=== PATIENT | female | born 1990 | race Caucasian/White ===

== ENCOUNTER 2020-02-09 20:40 | Inpatient (IN) | payer OTHER ==
--- OUTSIDE RECORDS SUMMARY | 2020-02-09 21:07 | XMS ---
:1990 Author Organization [facility] Support Name Relationship Address Phone JENNIFER WALKER STUDVIKA Unavailable [address] [place] [address] NICOLE GRAHAM [address] [place] [address] Re-disclosure Warning The records that you are about to access may contain information from federally- assisted alcohol or drug abuse programs. If such information is present, then the following federally mandated warning applies: This information has been disclosed to you from records protected by federal confidentiality rules (42 CFR part 2). The federal rules prohibit you from making any further disclosure of this information unless further disclosure is expressly permitted by the written consent of the person to whom it pertains or as otherwise permitted by 42 CFR part 2. A general authorization for the release of medical or other information is NOT sufficient for this purpose. The Federal rules restrict any use of the information to criminally investigate or prosecute any alcohol or drug abuse patient.The records that you are about to access may contain highly sensitive health information, the redisclosure of which is protected by Article 27-F of the [facility] Public Health law. If you continue you may haveaccess to information: Regarding HIV / AIDS; Provided by facilities licensed or operated by the [facility] Office of Mental Health; or Provided by the [facility] Office for People With Developmental Disabilities. If such information is present, then the following [facility] mandated warning applies: This information has been disclosed to you from confidential records which are protected by state law. State law prohibits you from making any further disclosure of this information without the specific written consent of the person to whom it pertains, or as otherwise permitted by law. Any unauthorized further disclosure in violation of state law may result in a fine or shelter sentence or both. A general authorization for the release of medical or other information is NOT sufficient authorization for further disclosure. Insurance Providers Payer name Policy type Policy ID Covered Covered democrat's Policy P ronny / Coverage democrat ID relationship to Aaron Inf ormation type aaron P MEDICAID [id number] O [facility] [id number] PLANS Results ID Date Data Source [id number] 09/09/2019 12:00:00 AM EDT [facility] Name Value Range Interpretation Code Description Data Columba rce(s) Supporting Document(s ) 2019-nCoV [facility] RNA XXX ROBB+probe- Imp This lab was ordered by BERNARDINO and reported by [employer] Procedure
--- OUTSIDE RECORDS SUMMARY | 2020-02-09 21:22 | XMS ---
:1990 Author Organization [facility] Support Name Relationship Address Phone JENNIFER BOYER Unavailable [address] [place] [address] GUERLINE RIVERA [address] [place] [address] Re-disclosure Warning The records that you are [...] is protected by Article 27-F of the [facility] Public Health law. If you continue you may haveaccess to information: Regarding HIV / AIDS; Provided by facilities licensed or operated by the [facility] Office of Mental Health; or Provided by the [facility] Office for People With Developmental Disabilities. If such information is present, then the following [facility] mandated warning applies: This information has been [...] law may result in a fine or detention sentence or both. A general authorization for the release of medical or other information is NOT sufficient authorization for further disclosure. Insurance Providers Payer name Policy type Policy ID Covered Covered republican's Policy P ronny / Coverage republican ID relationship to Aaron Inf ormation type aaron P MEDICAID [id number] O [facility] [id number] PLANS Results ID Date Data Source [id number] 09/09/2019 12:00:00 AM EDT [facility] Name Value Range Interpretation Code Description Data Columba rce(s) Supporting Document(s ) 2019-nCoV [facility] RNA XXX ROBB+probe- Imp This lab was ordered by BERNARDINO and reported by [employer] Procedure
[2020-02-09] MEDS ORDERED: BUTORPHANOL TARTRATE 2 MG/ML VIAL IVPB PRN (22:09)
[2020-02-09] MEDS ORDERED: ELECTROLYTE-148 SOLN 1,000 ML IV SCH (22:15)
--- NOTE | 2020-02-09 22:18 | HP ---
Past Medical History - Primary Care Physician PCP:: Keisha Jones - Admission Chief Complaint: SROM at 37 week History of Present Illness: 29 yo G P EDC EGA 37 week admitted due to srom at 37 week History Source: Patient Limitations to Obtaining History: No Limitations - Past Surgical History Hx Myomectomy: No Hx Transabdominal Cerclage: No - Smoking History Smoking history: Never smoked Aproximately how many cigarettes per day: 0 - Alcohol/Substance Use Hx Alcohol Use: No Home Medications - Allergies Allergies/Adverse Reactions: Allergies Allergy/AdvReac Type Severity Reaction Status Date / Time shellfish derived Allergy Intermediate Itching Verified 02/09/20 21:54 - Home Medications Home Medications: Ambulatory Orders Albuterol Sulfate Inhaler - [Ventolin HFA Inhaler -] 1 inh PO Q4H PRN 11/04/14 Azithromycin [Zithromax 250mg Tablets -] 250 mg PO UTDICT #6 tab 12/21/15 Fexofenadine HCl [Casandra Allergy] 180 mg PO DAILY #7 tablet 12/21/15 Review of Systems - Review of Systems Constitutional: reports: No Symptoms Eyes: reports: No Symptoms HENT: reports: No Symptoms Neck: reports: No Symptoms Cardiovascular: reports: No Symptoms Respiratory: reports: No Symptoms Gastrointestinal: reports: No Symptoms Genitourinary: reports: No Symptoms Breasts: reports: No Symptoms Reported Musculoskeletal: reports: No Symptoms Integumentary: reports: No Symptoms Neurological: reports: No Symptoms Endocrine: reports: No Symptoms Hematology/Lymphatic: reports: No Symptoms Psychiatric: reports: No Symptoms Physical Exam - Maternity Constitutional: Yes: Well Nourished, No Distress Cardiovascular: Yes: WNL - Abdominal Exam/OB Fundal Height: 37 Number of Fetuses: Single Presentation: Vertex Contractions: Yes Regularity: Irregular Monitor Mode: External Heart Rate (range): 141 Heart Rate Location: [facility] Category: I Decelerations: None - Vaginal Exam/OB Dilatation (cm): 1 Amniotic Membrane Status: Ruptured Nitrazine Test: Positive Presentation: Vertex/Position - Physical Exam Musculoskeletal: Yes: WNL Extremities: Yes: WNL Psychiatric: Yes: WNL, Alert, Oriented Problem List - Problems (1) Spontaneous rupture of amniotic membranes Problems reviewed: Yes Code(s): MLK2486 - (2) 37 weeks gestation of Problems reviewed: Yes Code(s): Z3A.37 - 37 WEEKS GESTATION OF Assessment/Plan IUP at 37 week SROM Cat 1 GBS neg Plan Admit to LD
[2020-02-09 22:25] VITALS: BMI 26.6
[2020-02-09 23:54] LABS: BASO % 0.3 % (0-2.0); EOS % 2.5 % (0-4.5); HEMATOCRIT 37.2 % (32.4-45.2); HEMOGLOBIN 12.3 GM/dL (10.7-15.3); LYMPH % 16.8 % (8-40); MCH 28.8 pg (25.7-33.7); MCHC 33.1 g/dl (32.0-36.0); MEAN PLT VOLUME 7.7 fl (7.5-11.1); MONO % 8.3 % (3.8-10.2); NEUT % 72.1 % (42.8-82.8); PLATELET COUNT 328 K/MM3 (134-434); RBC 4.28 M/mm3 (3.60-5.2); RDW 13.8 % (11.6-15.6); WHITE BLOOD COUNT 10.7 K/mm3 (4.0-10.0)
[2020-02-10] LABS: INR 0.93 (0.83-1.09); PROTHROMBIN TIME (PATIENT) 11.3 SEC (9.7-13.0)
[2020-02-10 00:02] LABS: ACTIVATED PTT 27.7 SECONDS (25.2-36.5)
[2020-02-10 00:19] LABS: POTASSIUM 3.9 mmol/L (3.5-5.1)
[2020-02-10 00:20] LABS: CALCIUM 9.1 mg/dL (8.5-10.1)
[2020-02-10 00:21] LABS: BLOOD UREA NITROGEN 8.1 mg/dL (7-18)
[2020-02-10 00:24] LABS: CREATININE 0.6 mg/dL (0.55-1.3)
[2020-02-10] MEDS ORDERED: FENTANYL/BUPIVACAINE/NS/PF - PCEA - 50 ML DISP.SYRIN EP ONE ×3 (08:15→16:23)
[2020-02-10] MEDS ORDERED: PCA PUMP NR ONE ×3 (08:15→19:40)
--- NOTE | 2020-02-10 08:19 | PN ---
Ante-Partal Exam - Subjective Vital Signs: Vital Signs Temperature 98.2 F 02/10/20 07:00 Pulse Rate 71 02/10/20 07:00 Respiratory Rate 18 02/10/20 07:00 Blood Pressure 112/54 L 02/10/20 07:00 O2 Sat by Pulse Oximetry (%) Bleeding: No Headache: No Visual changes: No Right upper quadrant pain: No - Contractions Contractions: Yes - Exam during Labor Variability: Moderate Heart Rate Location: [facility] Category: I Exam: Vaginal Dilatation (cm): 2 Effacement (%): 80 Amniotic Membrane Status: Ruptured Amniotic Fluid: Clear Presentation: Vertex - Intrapartum Hemorrhage Risk Risk Score: 0 Risk Level: Low Risk - Assessment/Plan Assessment/Plan: SROM >12 hours 37 week Cat 1 Plan will start IV antibiotics pitocin aug
[2020-02-10] MEDS ORDERED: OXYTOCIN 30 UNITS in 0.9% NS 30 UNIT/500 ML INFUS.BAG IVPB SCH (08:30)
[2020-02-10] MEDS ORDERED: AMPICILLIN - 2 GM in SODIUM CHLORIDE 100 ML IVPB ONE (08:30)
[2020-02-10 08:35] LABS: POC NITRAZINE POS
[2020-02-10] MEDS ORDERED: AMPICILLIN SODIUM 2 GM VIAL ONE (08:50)
[2020-02-10] MEDS ORDERED: OXYTOCIN 30 UNITS in 0.9% NS 30 UNIT/500 ML INFUS.BAG IVPB ONE (08:50)
[2020-02-10] MEDS ORDERED: AMPICILLIN SODIUM 1 GM VIAL ONE ×2 (12:00→16:22)
[2020-02-10] MEDS: AMPICILLIN - 1 GM in SODIUM CHLORIDE 100 ML IVPB SCH ×3 (12:30→22:20)
--- NOTE | 2020-02-10 14:05 | PN ---
Ante-Partal Exam - Subjective Vital Signs: Vital Signs Temperature 98.0 F 02/10/20 13:00 Pulse Rate 69 02/10/20 09:45 Respiratory Rate 16 02/10/20 09:45 Blood Pressure 104/64 02/10/20 09:45 O2 Sat by Pulse Oximetry (%) 98 02/10/20 09:45 Bleeding: No Headache: No Visual changes: No Right upper quadrant pain: No - Contractions Monitor Mode: External - Exam during Labor Variability: Moderate Category: I Monitor Decelerations: None Exam: Vaginal Dilatation (cm): 3 Effacement (%): 100 Amniotic Membrane Status: Intact Presentation: Vertex Station: 0 - Intrapartum Hemorrhage Risk High Risk Factors: None Risk Score: 0 Risk Level: Low Risk - Assessment/Plan Assessment/Plan: Active labor Cat 1 Plan Continue present management
[2020-02-10] MEDS ORDERED: NALOXONE HCL 0.4 MG/ML VIAL IVPUSH PRN (16:33)
[2020-02-10] MEDS ORDERED: FENTANYL/BUPIVACAINE/NS/PF - PCEA - 50 ML DISP.SYRIN EP SCH (16:45)
[2020-02-10] MEDS ORDERED: LIDOCAINE HCL 1% PRESERVATIVE FREE - 30ML VIAL ONE (18:57)
[2020-02-10] MEDS ORDERED: OXYTOCIN 20 UNITS in 0.9% NS 20 UNIT/1,000 ML INFUS.BAG IV ONE (18:57)
--- NOTE | 2020-02-10 19:01 | PN ---
Ante-Partal Exam - Subjective Vital Signs: Vital Signs Temperature 98.4 F 02/10/20 18:00 Pulse Rate 79 02/10/20 16:00 Respiratory Rate 16 02/10/20 16:00 Blood Pressure 107/71 02/10/20 16:00 O2 Sat by Pulse Oximetry (%) 99 02/10/20 16:00 Bleeding: No Headache: No Visual changes: No Right upper quadrant pain: No - Contractions Contractions: Yes Monitor Mode: External - Exam during Labor Variability: Moderate Category: I Monitor Decelerations: None Exam: Vaginal Dilatation (cm): FD Presentation: Vertex Station: +1 - Intrapartum Hemorrhage Risk High Risk Factors: None Risk Score: 0 Risk Level: Low Risk - Assessment/Plan Assessment/Plan: Active labor Cat 1 37 week Plan anticipate vaginal delivery
[2020-02-10] MEDS ORDERED: BENZOCAINE 20% 57 GM BOTTLE TP PRN (20:03)
[2020-02-10] MEDS ORDERED: WITCH HAZEL 50% (TUCKS) 40 PAD/JAR PAD TP PRN (20:03)
[2020-02-10] MEDS ORDERED: METHYLERGONOVINE MALEATE 0.2 MG/1 ML AMP IM PRN (20:03)
[2020-02-10] MEDS ORDERED: BENZOCAINE 28 GM HEMORRHOIDAL OINTMENT RC PRN (20:03)
[2020-02-10] MEDS ORDERED: BISACODYL 10 MG SUPP.RECT PR PRN (20:03)
--- NOTE | 2020-02-10 20:03 | PN ---
Delivery - Delivery Vaginal Delivery: No Problems, Spontaneous Type of Anesthesia: Epidural Episiotomy/Laceration: None EBL (cc): 300 Delivery, Single - Stages of Labor Placenta: Yes: Spontaneous - Condition of Gender: Female Position: OA - [place] Feeding Plan Initial Plan: Elected not to breastfeed exclusively throughout hospitalization
[2020-02-10] MEDS ORDERED: OXYTOCIN 20 UNITS in 0.9% NS 20 UNIT/1,000 ML INFUS.BAG IV SCH (20:15)
[2020-02-10] MEDS ORDERED: ACETAMINOPHEN 325 MG TABLET (FP) ONE (20:45)
[2020-02-10] MEDS: ACETAMINOPHEN 325 MG TABLET (FP) PO PRN (20:45)
[2020-02-10] MEDS: IBUPROFEN 600 MG TABLET (FP) PO PRN (20:45)
[2020-02-10] MEDS ORDERED: IBUPROFEN 600 MG TABLET (FP) PO ONE (20:45)
[2020-02-11] MEDS: IBUPROFEN 600 MG TABLET (FP) PO PRN ×2 (07:05→17:34)
[2020-02-11] MEDS: ACETAMINOPHEN 325 MG TABLET (FP) PO PRN ×2 (07:06→17:34)
[2020-02-11 09:34] LABS: BASO % 0.3 % (0-2.0); EOS % 0.9 % (0-4.5); HEMATOCRIT 33.4 % (32.4-45.2); HEMOGLOBIN 10.7 GM/dL (10.7-15.3); LYMPH % 9.3 % (8-40); MCH 28.6 pg (25.7-33.7); MCHC 32.2 g/dl (32.0-36.0); MEAN CELL VOLUME 88.7 fl (80-96); MEAN PLT VOLUME 7.8 fl (7.5-11.1); MONO % 6.2 % (3.8-10.2); NEUT % 83.3 % (42.8-82.8); PLATELET COUNT 263 K/MM3 (134-434); RBC 3.76 M/mm3 (3.60-5.2); WHITE BLOOD COUNT 16.1 K/mm3 (4.0-10.0)
[2020-02-11] MEDS ORDERED: DIPHTH,PERTUSS(ACELL),TET 0.5 ML DISP.SYRIN IM ONE (10:00)
[2020-02-11 22:39] VITALS: TEMP 98
--- NOTE | 2020-02-12 00:09 | PN ---
Post Note - Post Date of Delivery: 02/10/20 Post Day: 1 Vital Signs: Vital Signs - 24 hr 02/11/20 02/11/20 02/11/20 02:00 06:00 10:00 Temperature 98.5 F 98 F 98.5 F Pulse Rate 75 80 74 Respiratory 18 18 18 Rate Blood Pressure 104/50 L 111/63 93/58 L 02/11/20 02/11/20 02/11/20 14:00 18:00 22:00 Temperature 98.2 F 97.9 F 98.0 F Pulse Rate 70 92 H 69 Respiratory 18 20 20 Rate Blood Pressure 110/68 118/81 106/69 Labs: Laboratory Results - last 24 hr 02/09/20 02/09/20 02/11/20 23:00 23:00 08:11 WBC 16.1 H RBC 3.76 Hgb 10.7 Hct 33.4 MCV 88.7 MCH 28.6 MCHC 32.2 RDW 14.0 Plt Count 263 MPV 7.8 Absolute Neuts (auto) 13.4 H Neutrophils % 83.3 H Lymphocytes % 9.3 D Monocytes % 6.2 Eosinophils % 0.9 Basophils % 0.3 Nucleated RBC % 0 COVID-19 (ROBB) Not detected Hep Bs Antigen Negative - Subjective Subjective: No Complaints - Objective Afebrile: Yes Breast: Not engorged Abdomen: Soft, Non-tender Uterus: Fundus firm Vagina: Scant lochia Extremities: Non-tender - Assessment/Plan (1) Spontaneous rupture of amniotic membranes Assessment: S/P Normal Plan: Routine Care
[2020-02-12] MEDS: ACETAMINOPHEN 325 MG TABLET (FP) PO PRN (04:15)
[2020-02-12] MEDS: IBUPROFEN 600 MG TABLET (FP) PO PRN (04:16)
[2020-02-12 09:26] LABS: BASO % 0.5 % (0-2.0); EOS % 2.2 % (0-4.5); HEMATOCRIT 32.7 % (32.4-45.2); HEMOGLOBIN 10.5 GM/dL (10.7-15.3); LYMPH % 14.9 % (8-40); MCHC 32.1 g/dl (32.0-36.0); MEAN CELL VOLUME 87.2 fl (80-96); MEAN PLT VOLUME 7.3 fl (7.5-11.1); MONO % 4.7 % (3.8-10.2); NEUT % 77.7 % (42.8-82.8); PLATELET COUNT 285 K/MM3 (134-434); RBC 3.75 M/mm3 (3.60-5.2); WHITE BLOOD COUNT 11.7 K/mm3 (4.0-10.0)
[2020-02-12 10:59] VITALS: BP 101/68; PULSE 68
== END 2020-02-12 12:45 | disposition home or self-care (01) | DRG 560 ==
LOC: JDEL 20:40 → JLDR 21:00 → J3W 02-10 22:36
PROVIDERS: ADMIT Obstetrics & Gynecology; ATTEND Obstetrics & Gynecology
PROC: 10E0XZZ Delivery of Products of Conception, External Approach (ICD-10-PCS; principal; 2020-02-10)
DX: O42.02 Full-term premature rupture of membranes, onset of labor within 24 hours of rupture (principal); Z3A.37 37 weeks gestation of pregnancy; Z37.0 Single live birth; Z91.013 Allergy to seafood
CPT/HCPCS: 36415; 59409; 80048; 83986-QW; 85025; 85610; 85730; 86850; 86900; 86901; 87340; 87389; 90715; C9803; U0003

== ENCOUNTER 2021-06-10 16:35 | Emergency (ER) | payer OTHER ==
[2021-06-10 16:50] VITALS: BP 112/72; PULSE 78; TEMP 97.8; BMI 22.3
[2021-06-10] MEDS ORDERED: ACETAMINOPHEN 500 MG TABLET (FP) PO ONE (17:11)
[2021-06-10] MEDS ORDERED: ACETAMINOPHEN 325 MG TABLET (FP) ONE (17:49)
[2021-06-10 18:36] LABS: PH,URINE 5.5 (5.0-8.0); URINE APPEARANCE CLEAR; URINE BILIRUBIN NEGATIVE (NEGATIVE); URINE COLOR YELLOW; URINE GLUCOSE (UA) NEGATIVE (NEGATIVE); URINE KETONE NEGATIVE (NEGATIVE); URINE LEUK ESTERASE NEGATIVE (NEGATIVE); URINE NITRITE NEGATIVE (NEGATIVE); URINE PROTEIN NEGATIVE (NEGATIVE); URINE UROBILINOGEN 0.2 mg/dL (0.2-1.0)
[2021-06-10 18:42] LABS: BASO % 0.8 % (0-2.0); EOS % 6.3 % (0-4.5); HEMATOCRIT 38.2 % (32.4-45.2); HEMOGLOBIN 12.7 GM/dL (10.7-15.3); LYMPH % 22.6 % (8-40); MCH 28.2 pg (25.7-33.7); MCHC 33.4 g/dl (32.0-36.0); MEAN CELL VOLUME 84.5 fl (80-96); MEAN PLT VOLUME 7.4 fl (7.5-11.1); MONO % 8.2 % (3.8-10.2); NEUT % 62.1 % (42.8-82.8); PLATELET COUNT 347 10^3/uL (134-434); RBC 4.52 M/mm3 (3.60-5.2); RDW 13.4 % (11.6-15.6); WHITE BLOOD COUNT 8.1 K/mm3 (4.0-10.0)
[2021-06-10 18:45] LABS: HCG,QUALITATIVE URINE POSITIVE
[2021-06-10 19:02] LABS: CALCIUM 9.4 mg/dL (8.5-10.1)
[2021-06-10 19:03] LABS: ALBUMIN 3.5 g/dl (3.4-5.0); BLOOD UREA NITROGEN 15.1 mg/dL (7-18)
[2021-06-10 19:06] LABS: CREATININE 0.6 mg/dL (0.55-1.3)
[2021-06-10 19:08] LABS: BILIRUBIN,TOTAL 0.4 mg/dL (0.2-1); TOT PROT 7.5 g/dl (6.4-8.2)
== END 2021-06-10 20:57 | disposition home or self-care (01) ==
LOC: JER 16:35
DX: O26.891 Other specified pregnancy related conditions, first trimester (principal); R10.30 Lower abdominal pain, unspecified; Z3A.01 Less than 8 weeks gestation of pregnancy
CPT/HCPCS: 36415; 76817-TC; 80053; 81003; 83690; 84702; 84703; 85025; 87086; 99285-25